=== PATIENT | male | born 1970 | race Caucasian/White ===

== ENCOUNTER 2017-01-03 10:58 | Emergency (ER) | payer OTHER ==
[~2017-01-03] VITALS: Ht 182.9 cm; Wt 132.5 kg
[~2017-01-03 10:58] MED LIST: ADVAIR 250/501 DISK IH; AFRIN,GENASAL D15 ML BOTH NARES; ALLEGRA ALLERG180 MG PO; AMOXICILLIN875 MG PO; ATORVASTATIN CA10 MG PO; Advair HFA 115/21 IH; CLARITIN10 MG PO; DAILY VALUE1 EACH PO; Ecotrin PO; FLAGYL500 MG PO; Flonase BOTH NARES; GLIPIZIDE XL5 MG PO; GLUCOPHAGE500 MG PO; Glucophage PO; Glucotrol XL PO; JANUVIA100 MG PO; LACTINEX,FLO1 PACKET PO; LIPITOR10 MG; LISINOPRIL5 MG PO; LITE COAT ASPI325 M1 PO; LO-DOSE ASPIRIN81 M1 PO; MAGNESIUM250 MG PO; METFORMIN HCL1000 MG PO; METFORMIN HCL500 MG PO; MUCINEX1200 MG PO; NASONEX17 GM NS; PROAIR HFA8.5 GM IH; SERTRALINE HCL100 MG PO; TOPAMAX100 MG PO; TROKENDI XR200 MG PO; Topamax PO; Tylenol Regular Stre PO; VERAPAMIL ER100 MG PO; VERAPAMIL PO; VITAMIN D250000 UNIT; ZOLOFT25 MG PO; Zoloft PO
[2017-01-03 12:47] LABS: ADD MIUA? NO; BILIRUBIN NEGATIVE; BLOOD NEGATIVE; COLOR YELLOW ((YELLOW)); GLUCOSE (STRIP) 50; KETONES NEGATIVE; LEUKOCYTES NEGATIVE; NITRITE NEGATIVE; PROTEIN (STRIP) NEGATIVE; SPECIFIC GRAVITY 1.025 (1.000-1.030); UCUL ADDED? NO; UROBILINOGEN 0.2 MG/DL (0.2-1.0)
[2017-01-03 13:07] LABS: HEMATOCRIT 45.2 % (38.0-50.0); MCH 31.5 PG (29.0-34.0); MCHC 34.1 G/DL (30.0-36.0); MCV 92.4 FL (86-99); MEAN PLAT.VOLUME 10.4 uM^3 (9.0-12.4); PLATELET COUNT 264 K/uL (156-360); RBC DIS.WIDTH-CV 12.9 % (11.8-14.6); RBC DIS.WIDTH-SD 43.8 % (39-53); RED BLOOD COUNT 4.89 M/uL (4.00-5.50); WHITE BLOOD COUNT 10.3 K/uL (4.1-10.2)
[2017-01-03 13:17] LABS: CHLORIDE 111 mEq/L (99-109); POTASSIUM 4.3 mEq/L (3.7-5.4); SODIUM 138 mEq/L (136-147)
[2017-01-03 13:18] LABS: GLUCOSE 163 mg/dL (70-99)
[2017-01-03 13:20] LABS: ANION GAP 6 MEQ/L (2-14)
[2017-01-03 13:22] LABS: GFR ESTIMATE (CALCULATED) > 59 mL/min/
[2017-01-03 13:23] LABS: UREA NITROGEN (BUN) 12 mg/dL (9-23)
[2017-01-03] MEDS ORDERED: NAPROSYN500 MG PO (15:19)
[2017-01-03] MEDS ORDERED: SKELAXIN800 MG PO (15:19)
[2017-01-03 15:25] VITALS: BP 143/86
== END 2017-01-03 15:26 | disposition home or self-care (01) ==
LOC: EME 10:58
DX: S39.012A Strain of muscle, fascia and tendon of lower back, initial encounter (principal); X58.XXXA Exposure to other specified factors, initial encounter; Y93.H2 Activity, gardening and landscaping; E11.9 Type 2 diabetes mellitus without complications; Z79.84 Long term (current) use of oral hypoglycemic drugs; J45.909 Unspecified asthma, uncomplicated; K21.9 Gastro-esophageal reflux disease without esophagitis; Z87.442 Personal history of urinary calculi; Z86.73 Personal history of transient ischemic attack (TIA), and cerebral infarction without residual deficits; Z88.1 Allergy status to other antibiotic agents
CPT/HCPCS: 74176; 80048; 81003; 85027; 99281; 99284; J1885

== ENCOUNTER 2017-05-16 09:28 | Emergency (ER) | payer OTHER ==
[~2017-05-16] VITALS: Ht 182.9 cm; Wt 131.8 kg
[~2017-05-16 09:28] MED LIST changes: +NAPROSYN500 MG PO; +SKELAXIN800 MG PO
[2017-05-16 09:57] LABS: BASOPHIL (%) 0.9 % (0-1); BASOPHIL COUNT 0.1 K/uL (0-0.1); EOSINOPHIL (%) 1.1 % (0-5); EOSINOPHIL COUNT 0.1 K/uL (0-0.3); HEMATOCRIT 44.2 % (38.0-50.0); HEMOGLOBIN 15.1 G/DL (12.5-16.6); IMMATURE GRANULOCYTE (%) 0.4 % (0.0-0.7); LYMPHOCYTE (%) 19.3 % (15-42); MCH 31.7 PG (29.0-34.0); MCHC 34.2 G/DL (30.0-36.0); MCV 92.9 FL (86-99); MONOCYTE (%) 5.4 % (3-12); MONOCYTE COUNT 0.5 K/uL (0-0.8); NEUTROPHIL (%) 72.9 % (45-76); NEUTROPHIL COUNT 7.4 K/uL (1.8-6.4); PLATELET COUNT 252 K/uL (156-360); RBC DIS.WIDTH-CV 13.1 % (11.8-14.6); RBC DIS.WIDTH-SD 44.4 % (39-53); RED BLOOD COUNT 4.76 M/uL (4.00-5.50); WHITE BLOOD COUNT 10.1 K/uL (4.1-10.2)
[2017-05-16 10:03] LABS: INTER. NORMALIZED RATIO 1.1
[2017-05-16 10:05] LABS: D-DIMER ELISA < 150.00 ng/mLDDU (<230)
[2017-05-16 10:06] LABS: PTT 27.8 SEC (25-37)
[2017-05-16 10:17] LABS: TROP-I INTERPRETATION NEGATIVE; TROPONIN-I < 0.01 ng/mL (0.0-0.30)
[2017-05-16 10:28] LABS: CHLORIDE 110 MEQ/L (99-109); CREATININE 0.9 MG/DL (0.6-1.3); GFR ESTIMATE (CALCULATED) > 59 mL/min/ (58.99-99999); GLUCOSE 193 mg/dL (70-99); POTASSIUM 4.2 MEQ/L (3.7-5.4); SODIUM 136 MEQ/L (136-147); UREA NITROGEN (BUN) 13 mg/dL (9-23)
[2017-05-16 13:00] VITALS: BP 148/104
[2017-05-16 13:01] LABS: TROP-I INTERPRETATION NEGATIVE; TROPONIN-I < 0.01 ng/mL (0.0-0.30)
== END 2017-05-16 13:53 | disposition home or self-care (01) ==
LOC: EME 09:28
PROVIDERS: Emergency Medicine
DX: R07.89 Other chest pain (principal); J45.909 Unspecified asthma, uncomplicated; K21.9 Gastro-esophageal reflux disease without esophagitis; E11.9 Type 2 diabetes mellitus without complications; Z87.442 Personal history of urinary calculi; Z86.73 Personal history of transient ischemic attack (TIA), and cerebral infarction without residual deficits; Z79.84 Long term (current) use of oral hypoglycemic drugs; Z79.82 Long term (current) use of aspirin; Z88.0 Allergy status to penicillin
CPT/HCPCS: 71045; 80048; 84484; 85025; 85379; 85610; 85730; 93005; 99281; 99284